=== PATIENT | female | born 1990 | race Caucasian/White ===

== ENCOUNTER 2022-11-19 18:29 | Emergency (ER) | payer OTHER ==
[2022-11-19 18:48] VITALS: BP 104/55; PULSE 64; RESP 16; TEMP 98.7; BMI 31.1
[2022-11-19 19:49] LABS: EPI CELLS 32 /uL (0-25.1); HCG,QUALITATIVE URINE Negative; HYALINE CASTS 1 /uL (0-3.1); URINE APPEARANCE CLEAR; URINE BACTERIA 390 /uL (0-1359); URINE BILIRUBIN NEGATIVE (NEGATIVE); URINE COLOR YELLOW; URINE GLUCOSE (UA) NEGATIVE (NEGATIVE); URINE KETONE TRACE (NEGATIVE); URINE LEUK ESTERASE TRACE (NEGATIVE); URINE NITRITE NEGATIVE (NEGATIVE); URINE PROTEIN NEGATIVE (NEGATIVE); URINE RBC 36 /uL (0-23.9); URINE UROBILINOGEN 0.2 mg/dL (0.2-1.0); URINE WBC 13 /uL (0-25.8)
[2022-11-19] MEDS ORDERED: ACETAMINOPHEN 500 MG TABLET (FP) PO ONE (20:02)
[2022-11-19] MEDS ORDERED: IBUPROFEN 600 MG TABLET (FP) PO ONE ×2 (20:02→20:08)
[2022-11-19] MEDS ORDERED: ACETAMINOPHEN 500 MG TABLET (FP) ONE (20:08)
== END 2022-11-19 21:23 | disposition home or self-care (01) ==
LOC: JER 18:29
DX: R10.2 Pelvic and perineal pain (principal)
CPT/HCPCS: 76830-TC; 81003; 84703; 87086; 99284-25